=== PATIENT | male | born 1995 | race Two or more races ===

== ENCOUNTER 2019-05-31 16:50 | Emergency (ER) | payer OTHER, SELFPAY ==
[~2019-05-31] VITALS: Ht 172.7 cm; Wt 86.2 kg
[2019-05-31 17:04] VITALS: BP 112/85
== END 2019-05-31 19:30 | disposition home or self-care (01) ==
LOC: ER 16:50
DX: J10.1 Influenza due to other identified influenza virus with other respiratory manifestations (principal); Z20.828 Contact with and (suspected) exposure to other viral communicable diseases
CPT/HCPCS: 87070; 87804; 87880; 99283; C9803; U0003; 87635; 99001